=== PATIENT | female | born 1935 | race Caucasian/White ===

== ENCOUNTER 2016-10-01 12:24 | Day surgery (SDC) | payer OTHER ==
[~2016-10-01] VITALS: Ht 157.5 cm; Wt 65.3 kg
[~2016-10-01 12:24] MED LIST: CITA20TA6 PO; LORA-408 PO; PANT40TA4 PO; RANI150T5 PO; TEMA30CA PO
[2016-10-01 13:30] VITALS: BP 161/70; PULSE 64; RESP 18
[2016-10-01 13:31] VITALS: Ht 157.5 cm; Wt 65.3 kg
[2016-10-01] MEDS ORDERED: PROPOFOL 20 ML ONE (13:32)
[2016-10-01] MEDS ORDERED: MIDAZOLAM 1 MG/ML 2 ML INJ ONE (13:32)
[2016-10-01] MEDS ORDERED: FENTAnyl 50 MCG/ML VIAL ONE (13:32)
--- NOTE | 2016-10-01 14:09 | OPPN ---
Date/Time of Note Date/Time of Note DATE: 10/01/16 TIME: 14:05 Proc Note GI Procedure date: Oct 01, 2016 Pre-procedure Diagnosis Occult GI bleeding history of peptic ulcer disease Post-procedure Diagnosis Multiple polyps multiple nodules noted in the stomach polyps noted in the GE junction Operation Performed EGD Surgeon: ELSIE KILPATRICK MD Anesthesia Type: MAC Estimated blood loss: none Transfusion Required: no Specimens Gastric biopsy and biopsy from the GE junction Grafts/Implants: none Grafts/Implants None Tubes/Drains None Pt Condition post procedure: stable Indications Occult GI bleeding history of peptic ulcer disease Operative\Procedure Findings After informed written consent is obtained patient was ostial in the left lateral side intravenous anesthesia was given by anesthesia was Dr. Lombardo, and the patient become somnolent Olympus video upper endoscope was introduced into the oropharynx and then into the esophagus Mild diffuse esophagitis were noted biopsy was done 2 polyps were noted and the GE junction biopsies were done Scope with this and was advanced into the stomach and the stomach showed multiple nodules and multiple polyps random biopsies were obtained from random polyps Scope with the same was advanced into the duodenum duodenum appeared normal Scope with this and was withdrawn and the procedure was terminated plan recommend wait for the pathology report Recommend proton pump inhibitor therapy cc ; ELSIE Ríos MD Oct 01, 2016 14:08
--- NOTE | 2016-10-01 14:14 | OPPN ---
Date/Time of Note Date/Time of Note DATE: 10/01/16 TIME: 14:09 Proc Note GI Procedure date: Oct 01, 2016 Pre-procedure Diagnosis Occult GI bleeding rule out colon polyps Post-procedure Diagnosis 2 polyps noted as described below Operation Performed Colonoscopy Surgeon: ELSIE KILPATRICK MD Anesthesia Type: MAC Estimated blood loss: none Transfusion Required: no Specimens Colon polyps Complications: no Pt Condition post procedure: stable Indications Occult GI bleeding Operative\Procedure Findings After informed written consent is obtained patient was ostial in the left lateral side Intravenous anesthesia was given by anesthesiologist Dr. Vo The patient become somnolent Olympus video colonoscope was introduced into the rectum and advanced all the way to the cecum 2 large polyps were noted in the rectum one was a measuring about 2 cm in diameter located in the white stalk polypectomy was performed at about 7 cm from the anus there is evidence of a lobulated polyp with wide base noted multiple biopsies were obtained Rest of the colon appeared normal up to the end of the cecum on the way out no additional abnormalities detected and multiple severe external hemorrhoids were noted Plan admit for the pathology report cc ; ELSIE Ríos MD Oct 01, 2016 14:14
[2016-10-01 14:38] VITALS: BP 132/56; PULSE 64; RESP 22
== END 2016-10-01 14:44 | disposition home or self-care (01) ==
LOC: GIL 12:24
PROVIDERS: ATTEND Internal Medicine Gastroenterology
DX: K92.1 Melena (principal); D12.6 Benign neoplasm of colon, unspecified; K31.7 Polyp of stomach and duodenum; E03.9 Hypothyroidism, unspecified; I10 Essential (primary) hypertension; K62.1 Rectal polyp
CPT/HCPCS: 43239; 45380; 45385; 88305; 88312; J2250; J3010; Z7610